=== PATIENT | female | born 1950 | race Caucasian/White ===

== ENCOUNTER 2019-08-29 18:03 | Emergency (ER) | payer OTHER ==
[~2019-08-29] VITALS: Ht 149.9 cm; Wt 44.9 kg
[2019-08-29 18:05] VITALS: BP 113/60
--- NOTE | 2019-08-29 18:35 | NUR ---
69/F BIB FRIEND. CAME IN COMPLAINING OF DYSURIA. PT STATES "IT HURTS WHEN I URINATE", SYMPTOMS BEGAN A WEEK AGO AND GOT WORSE ON SATURDAY AND TODAY. SHE STATES FREQUENCY, DYSURIA, HESITANCY, FEVER AND CHILLS. PT. DENIES PAIN ON ABDOMEN, FLANKS, AND BLOOD ON URINE. PT PROVIDED A URINE SAMPLE. SHE TOOK AZO AT HOME. PMHX: BREAST CANCER WHEN SHE WAS 17 RX: DENIES
--- NOTE | 2019-08-29 19:15 | NUR ---
RECEIVED REPORT FROM LILA BLUM. TRANSFER OF CARE AT THIS TIME.
[2019-08-29 19:45] VITALS: BP 107/43
--- NOTE | 2019-08-29 19:45 | NUR ---
PT DISCHARGED WITH PAPERWORK. RX CIPRO, PYRIDIUM. EDUCATED PT REGARDING MEDICATIONS AND S/E. EDUCATED PT REGARDING D/C DIAGNOSIS AND INSTRUCTIONS. PT VERBALIZED UNDERSTANDING OF TEACHING. TOLD PT TO FOLLOW UP WITH PCP AND WHEN TO RETURN TO ED. PT VSS. ALL QUESTIONS ANSWERED.
[2019-08-29 19:54] LABS: APPEARANCE,URINE SL CLOUDY (CLEAR); BILIRUBIN,URINE 1+ (NEGATIVE); BLOOD, URINE 2+ (NEGATIVE); COLOR,URINE ORANGE (YELLOW); LEUKOCYTE ESTERASE ,URINE 2+ (NEGATIVE); NITRITE, URINE POSITIVE (NEGATIVE); UGLUCOSE TRACE (NEGATIVE)
[2019-08-29 20:31] LABS: RBC,URINE >20 (MANY) /HPF (0-5); WBC,URINE TOO MANY TO COUNT /HPF (0-5)
--- NOTE | 2019-09-01 17:19 | NUR ---
reviewed positive urine culture for e.coli---pt given cipro which is sensitive to e.coli growth correct treatment given. no other intervention required at this time.
== END 2019-08-29 19:45 | disposition home or self-care (01) ==
LOC: MED 18:03
DX: N39.0 Urinary tract infection, site not specified (principal); Z98.890 Other specified postprocedural states
CPT/HCPCS: 81001; 87086; 87186; 99283